=== PATIENT | female | born 1945 | race Caucasian/White ===

== ENCOUNTER 2018-01-06 17:58 | Emergency (ER) | payer MEDICARE, BC ==
[2018-01-06] MEDS ORDERED: Acetaminophen/HYDROcodone 325-5 MG Tab PO ONE (19:14)
--- NOTE | 2018-01-06 19:22 | EDM.PDOC ---
ED HPI GENERAL MEDICAL PROBLEM - General Chief Complaint: Laceration Stated Complaint: FALL HIT HEAD Time Seen by Provider: 01/06/18 19:00 Source of Information: Reports: Patient, Family History Limitations: Reports: No Limitations - History of Present Illness INITIAL COMMENTS - FREE TEXT/NARRATIVE: Yessy presents today for complaints of left facial pain after fall from standing onto gravel at 1700. She denies LOC Significant tenderness to left zygomatic arch. 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: Musculoskeletal History: Reports: Fracture Neurological History: Reports: Migraines - Past Surgical History HEENT Surgical History: Reports: Tonsillectomy GI Surgical History: Reports: Appendectomy, Cholecystectomy Female Surgical History: Reports: Hysterectomy Musculoskeletal Surgical History: Reports: Knee Replacement Social & Family History - Tobacco Use Smoking Status *Q: Light Tobacco Smoker Years of Tobacco use: 20 Packs/Tins Daily: 0.5 - Recreational Drug Use Recreational Drug Use: No ED ROS GENERAL - Review of Systems Review Of Systems: See Below Constitutional: Denies: Fever, Chills, Malaise, Weakness HEENT: Reports: Other (Pain to left side of face, she also cracked tooth #9 and lost filling out of #10). Denies: Dental Pain, Nose Pain, Rhinitis, Throat Pain , Throat Swelling, Vertigo, Vision Change Respiratory: Denies: Shortness of Breath, Wheezing, Cough, Sputum Cardiovascular: Reports: Other (She reports history of hypertension). Denies: Chest Pain, Dyspnea on Exertion, Edema, Lightheadedness Endocrine: Reports: No Symptoms GI/Abdominal: Reports: No Symptoms Musculoskeletal: Reports: Other (Pain to left face, left shoulder, left anterior ribs) Skin: Reports: Wound Neurological: Denies: Confusion, Dizziness, Headache, Numbness, Tingling, Difficulty Walking, Weakness, Gait Disturbance Psychiatric: Reports: No Symptoms Hematologic/Lymphatic: Reports: No Symptoms Immunologic: Reports: No Symptoms ED EXAM, SKIN/RASH Exam: See Below Text/Narrative:: Yessy is an alert and oriented 72 year old female presenting with complaints of left facial pain, left shoulder pain, left anterior rib pain after a fall forward from standing onto gravel today. She cracked #9 tooth and filling came out of #10 tooth. She denies LOC, nausea, vomiting. Exam Limited By: No Limitations General Appearance: Alert, WD/WN, Mild Distress Eye Exam: Bilateral Eye: EOMI, Normal Inspection, PERRL Ears: Normal External Exam, Normal Canal, Hearing Grossly Normal, Normal TMs Nose: Normal Inspection, Normal Mucosa, No Blood Throat/Mouth: Normal Inspection, Normal Lips, Normal Gums, Normal Voice, No Airway Compromise, Other (Partial upper place missing, cracked #9 and filling missing from #10. ) Head: Facial Swelling, Facial Tenderness, Sinus Tenderness, Other (to left face , zygomatic arch) Respiratory/Chest: No Respiratory Distress, Lungs Clear, Normal Breath Sounds, No Accessory Muscle Use, Chest Non-Tender, Other (Left ribs nontender to palpation, no crepitus noted. ) Cardiovascular: Normal Peripheral Pulses, Regular Rate, Rhythm, No Edema, No Gallop, No Murmur, No Rub Peripheral Pulses: 2+: Radial (L), Radial (R), Dorsalis Pedis (L), Dorsalis Pedis (R) GI/Abdominal: Normal Bowel Sounds, Soft, Non-Tender, No Organomegaly, No Distention Back Exam: Normal Inspection, Full Range of Motion. No: CVA Tenderness (R), CVA Tenderness (L) Extremities: Normal Inspection, Normal Range of Motion, Non-Tender, No Pedal Edema, Normal Capillary Refill Neurological: Alert, Oriented, CN II-XII Intact, Normal Cognition, Normal Gait, Normal Reflexes, No Motor/Sensory Deficits Psychiatric: Normal Affect, Normal Mood Skin: Warm, Dry, Ecchymosis, Wound/Incision, Other (Edema, ecchymosis to left zygomatic arch. Small0.5cm lacerartion to left brow-line, bleeding controlled. ) Characteristics: Linear Associated features: Tenderness, Swelling Lymphatic: No Adenopathy ED SKIN PROCEDURES - Laceration/Wound Repair Left Face Lac/Wound length In cm: 0.5 Appearance: Subcutaneous, Linear, Clean Distal NVT: Neuro & Vascular Intact Skin Prep: Chlorhexidine (Hibiciens), Saline Exploration/Debridement/Repair: Wound Explored Closed with: Dermabond Sterile Dressing Applied: None Tetanus Status Addressed: Yes Complications: No Progress/Comments: Laceration to left eyebrow, patient tolerated cleaning and closure without issue. Course - Vital Signs Last Recorded V/S: Last Vital Signs Temp 35.7 C 01/06/18 18:39 Pulse 71 01/06/18 18:39 Resp 14 01/06/18 18:39 BP 177/55 H 01/06/18 18:39 Pulse Ox 94 L 01/06/18 18:39 - Orders/Labs/Meds Orders: Active Orders 24 hr Category Date Time Status Head wo Cont [CT] Stat Exams 01/06/18 19:14 Taken Max Facial Sinus wo Cont [CT] Stat Exams 01/06/18 19:14 Taken Meds: Medications Discontinued Medications Generic Name Dose Route Start Last Admin Trade Name Freq PRN Reason Stop Dose Admin Hydrocodone Bitart/Acetaminophen 1 tab 01/06/18 19:14 01/06/18 19:43 [place] 325-5 Mg PO 01/06/18 19:15 1 tab ONETIME ONE Administration - Radiology Interpretation CT Results Date: 01/06/18 (Maxillofacial CT without contrast impression: No acute facial bone fracture. Left infraorbital soft tissue swelling/hematoma. Nonspecific fluid within the maxillary air cells, right greater than left. CT of head without contrast impression: Small soft tissue sweling and edema in the lateral aspect of the left supraorbital rim. Underlying calvarium is intact. Patchy periventricular subcortical white matter hypodensity most consistent with small vessel ischemic change. Amorphous 2.0cm area of hypodensity within the white matter of the left occipital lobe. No mass effect, left lateral ventricle slightly larger than right. No acute intracranial bleed.) - Re-Assessments/Exams Free Text/Narrative Re-Assessment/Exam: 01/06/18 20:45 CT results discussed with patient. She reports she has a history of subdural hematoma. Her primary provider follows this area with annual CT scans. Neurological status intact. All her questions were answered. She is in agreement with plan. She will be discharged to home with her daughter. Departure - Departure Time of Disposition: 20:52 Disposition: Home, Self-Care 01 Condition: Good Clinical Impression: Facial contusion, Fall from standing, Rib pain on left side, Laceration of left eyebrow - Discharge Information Instructions: Facial or Scalp Contusion, [id number], Rib Contusion, Stitches , [place], or Adhesive Wound Closure Referrals: PCP,None [Primary Care Provider] - Forms: ED Department Discharge Additional Instructions: You have been evaluated and treated for injuries from a fall tonight. Laceration left eyebrow 0.5cm, cleansed and closed with dermabond. CT scan report shows no fractures or acute findings of the face or brain. Contusion, swelling to left face, infraorbital tissue. You have been provided instymed for hydrocodone 5/325mg , take 1/2 to 1 tablet three times a day as needed for pain #8 tablets. Take acetaminophen and ibuprofen as needed for pain. Ice to face for 20 minutes at a time, twice per hour while awake. Return for any sign of worsening, issue or concerns. Follow up with your primary provider in 10 to 14 days for a recheck. - My Orders Last 24 Hours: My Active Orders 01/06/18 19:14 Head wo Cont [CT] Stat Max Facial Sinus wo Cont [CT] Stat - Assessment/Plan Last 24 Hours: My Active Orders 01/06/18 19:14 Head wo Cont [CT] Stat Max Facial Sinus wo Cont [CT] Stat Assessment:: Facial contusion Rib pain left side Fall from standing Laceration left eye brow CT head and facial bones without contrast Laceration 0.5cm, closed with dermabond Plan: Patient evaluated and treated for injuries from a fall tonight. Laceration left eyebrow 0.5cm, cleansed and closed with dermabond. CT scan report shows no fractures or acute findings of the face or brain. Contusion, swelling to left face, infraorbital tissue. She was provided instymed for hydrocodone 5/325mg , take 1/2 to 1 tablet three times a day as needed for pain #8 tablets. Take acetaminophen and ibuprofen as needed for pain. Ice to face for 20 minutes at a time, twice per hour while awake. Return for any sign of worsening, issue or concerns. Follow up with primary provider in 10 to 14 days for a recheck. Follow up with dentist as soon as possible.
== END 2018-01-06 21:05 | disposition home or self-care (01) ==
LOC: JP.ED 17:58
DX: S01.112A Laceration without foreign body of left eyelid and periocular area, initial encounter (principal); R07.81 Pleurodynia; I10 Essential (primary) hypertension; F17.210 Nicotine dependence, cigarettes, uncomplicated; Z91.040 Latex allergy status; Z88.8 Allergy status to other drugs, medicaments and biological substances; Z91.041 Radiographic dye allergy status; W19.XXXA Unspecified fall, initial encounter
CPT/HCPCS: 12011; 70450; 70486; 99284; A9270